=== PATIENT | male | born 1985 | race Caucasian/White ===

== ENCOUNTER → 2016-07-12 | Emergency (ER) | payer BC ==
[~2016-07-12] MED LIST: DULO60CA PO
== END | disposition left against medical advice (07) ==
LOC: ER 21:47
DX: R51 Headache (principal); Z53.21 Procedure and treatment not carried out due to patient leaving prior to being seen by health care provider

== ENCOUNTER 2016-09-07 08:41 | Emergency (ER) | payer BC ==
[~2016-09-07] VITALS: Ht 172.7 cm; Wt 98.0 kg
[2016-09-07 08:48] VITALS: BP 136/93
== END 2016-09-07 09:14 | disposition home or self-care (01) ==
LOC: ER 08:48
DX: M54.5 Low back pain (principal); G89.29 Other chronic pain; M19.90 Unspecified osteoarthritis, unspecified site; F17.210 Nicotine dependence, cigarettes, uncomplicated; Z88.0 Allergy status to penicillin; Z76.0 Encounter for issue of repeat prescription; Z79.899 Other long term (current) drug therapy

== ENCOUNTER 2016-10-10 03:39 | Emergency (ER) | payer BC ==
[~2016-10-10] VITALS: Ht 172.7 cm; Wt 97.5 kg
[2016-10-10 04:44] LABS: Urine RBC None Seen /hpf (0 - 3)
[2016-10-10 04:52] LABS: Urine Bilirubin Negative (Negative); Urine Blood Negative /uL (Negative); Urine Color Yellow (Yellow); Urine Glucose Normal (Normal); Urine Ketone Negative (Negative); Urine Nitrite Negative (Negative); Urine Urobilinogen Normal (Negative); Urine pH 6.5 (5.0-8.0)
[2016-10-10] MEDS ORDERED: SODIUM CHLORIDE 0.9% 1,000 ML IV ONE (09:12)
[2016-10-10] MEDS ORDERED: KETOROLAC TROMETH 30 MG/ML 1ML VIAL IV ONE (09:15)
[2016-10-10] MEDS ORDERED: METOCLOPRAMIDE HCL 5MG/ml INJ 2ml VIAL IV ONE (09:15)
[2016-10-10 09:43] LABS: Basophils # (auto) 0 uL; Basophils % (auto) 0.2 % (0.0-2.0); Eosinophils # (auto) 0.2 uL; Eosinophils % (auto) 1.8 % (0.0-7.0); Hematocrit 45.2 % (41.0-53.0); Hemoglobin 15.6 g/dL (13.5-17.5); Lymphocytes # (auto) 2.5 uL; Mean Corpuscular Hemoglobin 31.8 pg (28.0-32.0); Mean Corpuscular Hgb Conc. 34.5 g/dL (32.0-36.0); Mean Corpuscular Volume 92.3 fL (80.0-100.0); Mean Platelet Volume 9.2 fL (7.4-10.4); Monocytes # (auto) 0.5 uL; Monocytes % (auto) 4.3 % (0.0-12.0); Neutrophils % (auto) 71.7 % (37.0-80.0); Platelet Count (auto) 210 10^3/uL (140-450); Red Cell Distribution Width 13.4 % (11.6-16.0); White Blood Cell 11.2 10^3/uL (4.4-10.8)
[2016-10-10 09:49] LABS: Urine RBC None Seen /hpf (0 - 3)
[2016-10-10 09:55] VITALS: BP 143/96
[2016-10-10 09:56] LABS: Albumin 4.1 g/dL (3.4-5.0); Calcium 9.3 mg/dL (8.5-10.1); Magnesium 2.2 mg/dL (1.6-2.6)
[2016-10-10 10:00] LABS: Bilirubin, Total 0.4 mg/dL (0.2-1.0); Potassium 3.7 mmol/L (3.5-5.1); Total Protein 7.5 g/dL (6.4-8.2)
[2016-10-10 10:12] LABS: Urine Bilirubin Negative (Negative); Urine Blood Negative /uL (Negative); Urine Color Yellow (Yellow); Urine Glucose Normal (Normal); Urine Ketone Negative (Negative); Urine Nitrite Negative (Negative); Urine Squamous Epithelial Cell FEW /hpf (<5); Urine Urobilinogen Normal (Negative); Urine pH 6.5 (5.0-8.0)
== END 2016-10-10 10:32 | disposition home or self-care (01) ==
LOC: ER 03:43
DX: G89.4 Chronic pain syndrome (principal); M54.2 Cervicalgia; G89.29 Other chronic pain; M19.90 Unspecified osteoarthritis, unspecified site; F17.210 Nicotine dependence, cigarettes, uncomplicated
CPT/HCPCS: 36415; 80053; 81001; 83735; 85025; 96374; 96375; 99284; G0434; J1885; J2765; J7030

== ENCOUNTER 2017-02-18 01:39 | Emergency (ER) | payer BC ==
[~2017-02-18] VITALS: Ht 172.7 cm; Wt 100.2 kg
[2017-02-18 01:53] VITALS: BP 146/87
[2017-02-18] MEDS ORDERED: LORazepam 0.5 MG TAB PO ONE (04:30)
== END 2017-02-18 04:21 | disposition home or self-care (01) ==
LOC: ER 01:39
DX: F41.9 Anxiety disorder, unspecified (principal); M19.90 Unspecified osteoarthritis, unspecified site; F17.210 Nicotine dependence, cigarettes, uncomplicated

== ENCOUNTER 2017-10-03 14:49 | Emergency (ER) | payer BC, OTHER ==
[~2017-10-03] VITALS: Ht 172.7 cm; Wt 95.3 kg
[2017-10-03 15:17] VITALS: BP 145/95
== END 2017-10-03 16:31 | disposition home or self-care (01) ==
LOC: ER 14:49
DX: F41.9 Anxiety disorder, unspecified (principal); F31.9 Bipolar disorder, unspecified; F17.210 Nicotine dependence, cigarettes, uncomplicated; Z76.0 Encounter for issue of repeat prescription

== ENCOUNTER 2018-07-11 11:18 | Emergency (ER) | payer SELFPAY ==
[~2018-07-11] VITALS: Ht 172.7 cm; Wt 83.9 kg
[2018-07-11] MEDS ORDERED: SODIUM CHLORIDE 0.9% 1,000 ML IVB ONE (11:22)
[2018-07-11 11:43] VITALS: BP 142/87
[2018-07-11 11:57] LABS: Basophils # (auto) 0 uL; Basophils % (auto) 0.3 % (0.0-2.0); Eosinophils # (auto) 0 uL; Eosinophils % (auto) 0.2 % (0.0-7.0); Lymphocytes # (auto) 1.1 uL; Lymphocytes % (auto) 12.6 % (10.0-50.0); Monocytes # (auto) 0.4 uL; Red Blood Cells 5.75 10^6/uL (4.5-5.90)
[2018-07-11 11:59] LABS: Hematocrit 53.7 % (41.0-53.0); Hemoglobin 18.6 g/dL (13.5-17.5); Mean Corpuscular Hemoglobin 32.4 pg (28.0-32.0); Mean Corpuscular Hgb Conc. 34.7 g/dL (32.0-36.0); Mean Corpuscular Volume 93.4 fL (80.0-100.0); Monocytes % (auto) 4.3 % (0.0-12.0); Neutrophils # (auto) 7.4 uL; Neutrophils % (auto) 82.6 % (37.0-80.0); Nucleated Red Blood Cells % 0.1 %; Platelet Count (auto) 216 10^3/uL (140-450); Red Cell Distribution Width 13.6 % (11.8-14.3)
[2018-07-11 12:13] LABS: Albumin 4.5 g/dL (3.4-5.0); Anion Gap 7 (5-15); Blood Alcohol < 3.0 mg/dL (0-5); Blood Urea Nitrogen 10 mg/dL (7-18); Calcium 9.1 mg/dL (8.5-10.1); Carbon Dioxide 27 mmol/L (21-32); Chloride 105 mmol/L (98-107); Glucose 122 mg/dL (74-106); Magnesium 2.3 mg/dL (1.6-2.6); Sodium 139 mmol/L (136-145)
[2018-07-11 12:15] LABS: Alanine Aminotransferase 27 U/L (16-61); Alkaline Phosphatase 77 U/L (45-117); Aspartate Aminotransferase 14 U/L (15-37); BUN/Creatinine Ratio 9.5; Bilirubin, Total 0.4 mg/dL (0.2-1.0); GFR African American 105 mL/min; GFR Non-African American 86 mL/min; Total Protein 8.5 g/dL (6.4-8.2)
== END 2018-07-11 17:15 ==
LOC: EDBD 11:18 → ER 11:26
DX: F20.9 Schizophrenia, unspecified (principal); F41.9 Anxiety disorder, unspecified; M19.90 Unspecified osteoarthritis, unspecified site; F32.9 Major depressive disorder, single episode, unspecified; F17.210 Nicotine dependence, cigarettes, uncomplicated
CPT/HCPCS: 36415; 80053; 80320; 83735; 85025; 94761

== ENCOUNTER 2020-06-13 20:11 | Emergency (ER) | payer MEDICAID, OTHER | END 2020-06-14 01:00 | disposition left against medical advice (07) | LOC: ER 20:12 | DX: M79.673 Pain in unspecified foot (principal); Z53.21 Procedure and treatment not carried out due to patient leaving prior to being seen by health care provider ==

== ENCOUNTER 2020-06-14 20:55 | Emergency (ER) | payer MEDICAID ==
[~2020-06-14] VITALS: Ht 170.2 cm; Wt 73.0 kg
[2020-06-14 21:11] VITALS: BP 127/80
[2020-06-14] MEDS ORDERED: diphenhdrAMINE HCL 50 MG/1 ML VL ONE (21:31)
[2020-06-14] MEDS ORDERED: LORazepam 2MG/ML-1ML VIAL ONE (21:31)
[2020-06-14 21:55] LABS: Basophils # (auto) 0 10 ^3/uL (0-0.2); Basophils % (auto) 0.4 % (0.0-2.0); Eosinophils # (auto) 0 10 ^3/uL (0-0.8); Eosinophils % (auto) 0.5 % (0.0-7.0); Hematocrit 41.7 % (41.0-53.0); Hemoglobin 13.9 g/dL (13.5-17.5); Lymphocytes # (auto) 1.9 10 ^3/uL (0.4-5.4); Lymphocytes % (auto) 27.4 % (10.0-50.0); Mean Corpuscular Hemoglobin 31.5 pg (28.0-32.0); Mean Corpuscular Hgb Conc. 33.4 g/dL (32.0-36.0); Mean Corpuscular Volume 94.4 fL (80.0-100.0); Monocytes # (auto) 0.5 10 ^3/uL (0-1.3); Monocytes % (auto) 7.7 % (0.0-12.0); Neutrophils # (auto) 4.4 10 ^3/uL (1.6-8.6); Platelet Count (auto) 127 10^3/uL (140-450); Red Blood Cells 4.42 10^6/uL (4.5-5.90); Red Cell Distribution Width 13.3 % (11.8-14.3); White Blood Cell 6.8 10^3/uL (4.4-10.8)
[2020-06-14 22:14] LABS: Albumin 3.9 g/dL (3.4-5.0); Calcium 9.1 mg/dL (8.5-10.1)
[2020-06-14 22:17] LABS: Bilirubin, Total 0.4 mg/dL (0.2-1.0); Total Protein 7.4 g/dL (6.4-8.2)
[2020-06-14 22:23] LABS: Acetaminophen < 2.0 ug/mL (10-30)
[2020-06-14] MEDS ORDERED: diphenhdrAMINE HCL 50 MG/1 ML VL IM ONE (22:30)
[2020-06-14] MEDS ORDERED: LORazepam 2MG/ML-1ML VIAL IM ONE (22:30)
== END 2020-06-15 00:20 | disposition left against medical advice (07) ==
LOC: ER 20:55
DX: F23 Brief psychotic disorder (principal); F41.9 Anxiety disorder, unspecified
CPT/HCPCS: 36415; 80053; 80329; 85025; 96372; 99284; J1200; J2060

== ENCOUNTER 2020-06-17 20:05 | Emergency (ER) | payer MEDICAID ==
[~2020-06-17] VITALS: Ht 172.7 cm; Wt 77.1 kg
[2020-06-17 21:16] LABS: Basophils # (auto) 0 10 ^3/uL (0-0.2); Basophils % (auto) 0.3 % (0.0-2.0); Eosinophils # (auto) 0 10 ^3/uL (0-0.8); Eosinophils % (auto) 0.3 % (0.0-7.0); Hemoglobin 14.2 g/dL (13.5-17.5); Lymphocytes # (auto) 1.6 10 ^3/uL (0.4-5.4); Lymphocytes % (auto) 21.3 % (10.0-50.0); Mean Corpuscular Hemoglobin 30.7 pg (28.0-32.0); Mean Corpuscular Hgb Conc. 33.1 g/dL (32.0-36.0); Mean Corpuscular Volume 92.8 fL (80.0-100.0); Monocytes # (auto) 0.3 10 ^3/uL (0-1.3); Monocytes % (auto) 4.2 % (0.0-12.0); Neutrophils # (auto) 5.6 10 ^3/uL (1.6-8.6); Neutrophils % (auto) 73.9 % (37.0-80.0); Platelet Count (auto) 104 10^3/uL (140-450); Red Blood Cells 4.63 10^6/uL (4.5-5.90); Red Cell Distribution Width 13.3 % (11.8-14.3); White Blood Cell 7.6 10^3/uL (4.4-10.8)
[2020-06-17 21:26] LABS: Blood Alcohol < 3.0 mg/dL (0-5); Magnesium 2.2 mg/dL (1.6-2.6)
[2020-06-17 21:30] LABS: Albumin 4.2 g/dL (3.4-5.0); BUN/Creatinine Ratio 25.6; Potassium 4.3 mmol/L (3.5-5.1)
[2020-06-17 21:32] LABS: Bilirubin, Total 0.3 mg/dL (0.2-1.0); Total Protein 7.8 g/dL (6.4-8.2)
[2020-06-17 21:34] LABS: Salicylate 4.3 mg/dL (2.8-20.0)
[2020-06-17 21:44] LABS: Acetaminophen < 2.0 ug/mL (10-30)
[2020-06-17] MEDS ORDERED: OLANZapine 5 MG TAB PO ONE (21:45)
[2020-06-17 21:59] LABS: Urine WBC None Seen /hpf (0 - 3)
[2020-06-17 22:14] LABS: Urine Amorphous Crystal FEW /hpf (None Seen); Urine Bacteria NONE SEEN /hpf (None Seen); Urine Blood Negative /uL (Negative); Urine Specific Gravity 1.029 (1.001-1.035)
[2020-06-17 22:24] LABS: Alcohol, Urine < 3.0 mg/dL (0-10); Amphetamine Screen, Urine NEGATIVE (NEGATIVE); Barbiturate Scree,Urine NEGATIVE (NEGATIVE); Benzodiazephine Screen, Urine NEGATIVE (NEGATIVE); Cannabinoid Screen, Urine POSITIVE (NEGATIVE); Cocaine Screen, Urine NEGATIVE (NEGATIVE); Opiate Scree,Urine NEGATIVE (NEGATIVE); Phencyclidine Screen, Urine NEGATIVE (NEGATIVE)
[2020-06-17] MEDS ORDERED: ACETAMINOPHEN 325 MG TAB PO ONE (22:30)
[2020-06-18 08:10] VITALS: BP 127/78
== END 2020-06-18 03:49 | disposition home or self-care (01) ==
LOC: ER 20:05
DX: F20.9 Schizophrenia, unspecified (principal); F41.9 Anxiety disorder, unspecified; F31.9 Bipolar disorder, unspecified; Z20.828 Contact with and (suspected) exposure to other viral communicable diseases
CPT/HCPCS: 36415; 80053; 80307; 80320; 80329; 81001; 83735; 85025; 87426; 99285; J7030

== ENCOUNTER 2020-07-07 23:35 | Emergency (ER) | payer MEDICAID ==
[~2020-07-07] VITALS: Ht 170.2 cm; Wt 68.0 kg
[2020-07-08 01:21] LABS: Basophils # (auto) 0 10 ^3/uL (0-0.2); Basophils % (auto) 0.3 % (0.0-2.0); Eosinophils # (auto) 0 10 ^3/uL (0-0.8); Eosinophils % (auto) 0.2 % (0.0-7.0); Hematocrit 39.6 % (41.0-53.0); Hemoglobin 13.9 g/dL (13.5-17.5); Lymphocytes # (auto) 2.8 10 ^3/uL (0.4-5.4); Lymphocytes % (auto) 26.7 % (10.0-50.0); Mean Corpuscular Hemoglobin 31.9 pg (28.0-32.0); Mean Corpuscular Volume 91.3 fL (80.0-100.0); Neutrophils # (auto) 6.5 10 ^3/uL (1.6-8.6); Neutrophils % (auto) 62.8 % (37.0-80.0); Platelet Count (auto) 247 10^3/uL (140-450); Red Blood Cells 4.34 10^6/uL (4.5-5.90); White Blood Cell 10.3 10^3/uL (4.4-10.8)
[2020-07-08 01:44] LABS: Albumin 4.1 g/dL (3.4-5.0); Anion Gap 6 (5-15); Blood Alcohol < 3.0 mg/dL (0-5); Blood Urea Nitrogen 14 mg/dL (7-18); Calcium 9.3 mg/dL (8.5-10.1); Carbon Dioxide 30 mmol/L (21-32); Chloride 104 mmol/L (98-107); Glucose 129 mg/dL (74-106); Magnesium 1.9 mg/dL (1.6-2.6); Potassium 3.6 mmol/L (3.5-5.1); Sodium 140 mmol/L (136-145)
[2020-07-08 01:46] LABS: Alanine Aminotransferase 61 U/L (16-61); Aspartate Aminotransferase 51 U/L (15-37); BUN/Creatinine Ratio 14.6; GFR African American 115 mL/min; GFR Non-African American 95 mL/min
[2020-07-08 01:49] LABS: Alkaline Phosphatase 72 U/L (45-117); Bilirubin, Total 0.3 mg/dL (0.2-1.0); Salicylate < 1.7 mg/dL (2.8-20.0); Total Protein 7.8 g/dL (6.4-8.2)
[2020-07-08 01:49] LABS: Alcohol, Urine < 3.0 mg/dL (0-10); Amphetamine Screen, Urine NEGATIVE (NEGATIVE); Benzodiazephine Screen, Urine NEGATIVE (NEGATIVE); Cannabinoid Screen, Urine NEGATIVE (NEGATIVE); Cocaine Screen, Urine NEGATIVE (NEGATIVE); Opiate Scree,Urine NEGATIVE (NEGATIVE); Phencyclidine Screen, Urine NEGATIVE (NEGATIVE)
[2020-07-08 02:06] LABS: Barbiturate Scree,Urine NEGATIVE (NEGATIVE)
[2020-07-08 02:56] LABS: Urine Bacteria NONE SEEN /hpf (None Seen); Urine Blood Negative /uL (Negative); Urine Specific Gravity 1.024 (1.001-1.035); Urine WBC 1 /hpf (0 - 3)
[2020-07-08 03:17] LABS: Acetaminophen < 2.0 ug/mL (10-30)
[2020-07-09] MEDS: LATUDA 80 MG TAB PO SCH (10:00)
[2020-07-09] MEDS: DULoxetine HCL 30 MG CAP PO SCH (10:00)
[2020-07-09] MEDS: ALPRAZolam 0.5 MG TAB PO PRN ×2 (11:08→20:21)
[2020-07-10] MEDS: LATUDA 80 MG TAB PO SCH (10:00)
[2020-07-10] MEDS: DULoxetine HCL 30 MG CAP PO SCH (10:35)
[2020-07-10] MEDS: ZINC SULFATE 220mg CAP or TAB PO SCH (16:00)
[2020-07-10] MEDS: ASCORBIC ACID 500 MG TAB PO SCH (16:00)
[2020-07-10] MEDS: CHOLECALCIFEROL (VITD3) 2,000 UNIT CAP PO SCH (16:00)
[2020-07-10] MEDS: ALPRAZolam 0.5 MG TAB PO PRN (20:27)
[2020-07-11] MEDS: LATUDA 80 MG TAB PO SCH (09:19)
[2020-07-11] MEDS: DULoxetine HCL 30 MG CAP PO SCH (13:00)
[2020-07-11] MEDS: ASCORBIC ACID 500 MG TAB PO SCH (13:00)
[2020-07-11] MEDS: CHOLECALCIFEROL (VITD3) 2,000 UNIT CAP PO SCH (13:00)
[2020-07-11] MEDS: ZINC SULFATE 220mg CAP or TAB PO SCH (13:00)
[2020-07-11] MEDS: ALPRAZolam 0.5 MG TAB PO PRN ×2 (13:23→21:30)
[2020-07-12 02:16] VITALS: BP 120/79
== END 2020-07-12 07:39 | disposition home or self-care (01) ==
LOC: ER 23:35
DX: R45.851 Suicidal ideations (principal); F32.9 Major depressive disorder, single episode, unspecified; F20.9 Schizophrenia, unspecified; F41.9 Anxiety disorder, unspecified; Z20.828 Contact with and (suspected) exposure to other viral communicable diseases
CPT/HCPCS: 36415; 80053; 80307; 80320; 80329; 81001; 83735; 85025; 87426; 99285; C9803; U0003

== ENCOUNTER 2020-07-18 09:39 | Emergency (ER) | payer MEDICAID ==
[~2020-07-18] VITALS: Ht 172.7 cm; Wt 70.3 kg
[2020-07-18 09:59] VITALS: BP 122/81
== END 2020-07-18 11:38 | disposition home or self-care (01) ==
LOC: ER 09:39
DX: S90.424A Blister (nonthermal), right lesser toe(s), initial encounter (principal); X58.XXXA Exposure to other specified factors, initial encounter; Y93.89 Activity, other specified; Y92.89 Other specified places as the place of occurrence of the external cause; Y99.8 Other external cause status

== ENCOUNTER 2020-07-24 19:38 | Emergency (ER) | payer MEDICAID ==
[~2020-07-24] VITALS: Ht 172.7 cm; Wt 68.0 kg
[2020-07-24 20:50] VITALS: BP 136/72
== END 2020-07-24 23:29 | disposition home or self-care (01) ==
LOC: ER 19:38
DX: J06.9 Acute upper respiratory infection, unspecified (principal); R53.83 Other fatigue; R06.02 Shortness of breath; M79.10 Myalgia, unspecified site
CPT/HCPCS: 71045

== ENCOUNTER 2020-07-25 09:15 | Emergency (ER) | payer MEDICAID ==
[~2020-07-25] VITALS: Ht 172.7 cm; Wt 70.3 kg
[2020-07-25 09:17] VITALS: BP 127/79
== END 2020-07-25 10:19 | disposition home or self-care (01) ==
LOC: ER 09:15
DX: H66.92 Otitis media, unspecified, left ear (principal); F12.10 Cannabis abuse, uncomplicated

== ENCOUNTER 2020-07-27 01:39 | Emergency (ER) | payer MEDICAID ==
[~2020-07-27] VITALS: Ht 172.7 cm; Wt 74.8 kg
[2020-07-27 06:00] LABS: Basophils # (auto) 0 10 ^3/uL (0-0.2); Basophils % (auto) 0.4 % (0.0-2.0); Eosinophils # (auto) 0.3 10 ^3/uL (0-0.8); Eosinophils % (auto) 3.5 % (0.0-7.0); Hematocrit 37.9 % (41.0-53.0); Lymphocytes # (auto) 2.6 10 ^3/uL (0.4-5.4); Mean Corpuscular Hemoglobin 31.5 pg (28.0-32.0); Mean Corpuscular Hgb Conc. 34.4 g/dL (32.0-36.0); Mean Corpuscular Volume 91.8 fL (80.0-100.0); Monocytes # (auto) 0.5 10 ^3/uL (0-1.3); Monocytes % (auto) 6.6 % (0.0-12.0); Neutrophils # (auto) 3.8 10 ^3/uL (1.6-8.6); Neutrophils % (auto) 53.5 % (37.0-80.0); Nucleated Red Blood Cells % 0.1 %; Platelet Count (auto) 245 10^3/uL (140-450); Red Blood Cells 4.13 10^6/uL (4.5-5.90); Red Cell Distribution Width 13.3 % (11.8-14.3); White Blood Cell 7.2 10^3/uL (4.4-10.8)
[2020-07-27 06:17] LABS: Albumin 3.8 g/dL (3.4-5.0); BUN/Creatinine Ratio 26.7; Calcium 8.6 mg/dL (8.5-10.1); Magnesium 2.1 mg/dL (1.6-2.6); Potassium 3.9 mmol/L (3.5-5.1)
[2020-07-27 06:20] LABS: Acetaminophen < 2.0 ug/mL (10-30); Bilirubin, Total 0.2 mg/dL (0.2-1.0)
[2020-07-27] MEDS ORDERED: traMADol HCL 50 MG TAB PO ONE (06:45)
[2020-07-27 08:30] VITALS: BP 136/88
== END 2020-07-27 09:15 | disposition home or self-care (01) ==
LOC: ER 01:42
DX: F41.9 Anxiety disorder, unspecified (principal); Z88.0 Allergy status to penicillin
CPT/HCPCS: 36415; 80053; 80320; 80329; 83735; 85025

== ENCOUNTER 2020-07-30 19:15 | Emergency (ER) | payer MEDICAID ==
[~2020-07-30] VITALS: Ht 172.7 cm; Wt 63.5 kg
[2020-07-30] MEDS ORDERED: OLANZapine 5 MG TAB PO ONE (19:45)
[2020-07-30 21:12] LABS: Basophils # (auto) 0 10 ^3/uL (0-0.2); Basophils % (auto) 0.6 % (0.0-2.0); Eosinophils # (auto) 0.2 10 ^3/uL (0-0.8); Eosinophils % (auto) 2.6 % (0.0-7.0); Hematocrit 40.5 % (41.0-53.0); Hemoglobin 14.3 g/dL (13.5-17.5); Mean Corpuscular Hemoglobin 32.6 pg (28.0-32.0); Mean Corpuscular Hgb Conc. 35.4 g/dL (32.0-36.0); Mean Corpuscular Volume 91.9 fL (80.0-100.0); Monocytes # (auto) 0.3 10 ^3/uL (0-1.3); Monocytes % (auto) 4.8 % (0.0-12.0); Neutrophils # (auto) 4.1 10 ^3/uL (1.6-8.6); Nucleated Red Blood Cells % 0.1 %; Platelet Count (auto) 215 10^3/uL (140-450); Red Cell Distribution Width 13.4 % (11.8-14.3); White Blood Cell 6.6 10^3/uL (4.4-10.8)
[2020-07-30 21:28] LABS: BUN/Creatinine Ratio 21.6; Calcium 8.8 mg/dL (8.5-10.1); Potassium 3.5 mmol/L (3.5-5.1); Salicylate 3.6 mg/dL (2.8-20.0)
[2020-07-30 21:31] LABS: Bilirubin, Total 0.3 mg/dL (0.2-1.0); Magnesium 2.4 mg/dL (1.6-2.6); Total Protein 7.7 g/dL (6.4-8.2)
[2020-07-30 21:33] LABS: Acetaminophen < 2.0 ug/mL (10-30)
[2020-07-30 22:07] LABS: Urine Bacteria NONE SEEN /hpf (None Seen); Urine Blood Negative /uL (Negative); Urine Specific Gravity 1.028 (1.001-1.035); Urine WBC 2 /hpf (0 - 3)
[2020-07-30 22:13] LABS: Amphetamine Screen, Urine NEGATIVE (NEGATIVE); Barbiturate Scree,Urine NEGATIVE (NEGATIVE); Cannabinoid Screen, Urine NEGATIVE (NEGATIVE); Cocaine Screen, Urine NEGATIVE (NEGATIVE); Opiate Scree,Urine NEGATIVE (NEGATIVE); Phencyclidine Screen, Urine NEGATIVE (NEGATIVE)
[2020-07-30 22:16] LABS: Benzodiazephine Screen, Urine NEGATIVE (NEGATIVE)
[2020-08-02] MEDS ORDERED: LORazepam 0.5 MG TAB PO ONE (15:00)
[2020-08-02] MEDS: OLANZapine 5 MG TAB PO SCH (22:37)
[2020-08-03 10:58] VITALS: BP 109/67
[2020-08-03] MEDS: OLANZapine 5 MG TAB PO SCH (11:02)
== END 2020-08-03 11:11 | disposition short-term general hospital (02) ==
LOC: ER 19:17
DX: R44.0 Auditory hallucinations (principal); F32.9 Major depressive disorder, single episode, unspecified; F41.9 Anxiety disorder, unspecified; F12.10 Cannabis abuse, uncomplicated; F15.10 Other stimulant abuse, uncomplicated; Z59.0 Homelessness; Z20.822 Contact with and (suspected) exposure to COVID-19
CPT/HCPCS: 36415; 80053; 80307; 80320; 80329; 81001; 83735; 85025; 87426; 99285; C9803; U0003

== ENCOUNTER 2020-12-17 14:32 | Emergency (ER) | payer MEDICAID ==
[~2020-12-17] VITALS: Ht 175.3 cm; Wt 72.6 kg
[2020-12-17 16:35] VITALS: BP 91/66
== END 2020-12-17 16:37 | disposition home or self-care (01) ==
LOC: ER 14:32
DX: S90.425A Blister (nonthermal), left lesser toe(s), initial encounter (principal); F41.9 Anxiety disorder, unspecified; F32.9 Major depressive disorder, single episode, unspecified; F20.9 Schizophrenia, unspecified; Z88.0 Allergy status to penicillin; Z88.8 Allergy status to other drugs, medicaments and biological substances; Z79.899 Other long term (current) drug therapy; Z59.0 Homelessness; X58.XXXA Exposure to other specified factors, initial encounter; Y93.89 Activity, other specified; Y92.89 Other specified places as the place of occurrence of the external cause; Y99.8 Other external cause status

== ENCOUNTER 2021-04-22 07:32 | Emergency (ER) | payer MEDICAID ==
[~2021-04-22] VITALS: Ht 170.2 cm; Wt 81.6 kg
[2021-04-22 07:51] VITALS: BP 125/84
== END 2021-04-22 08:43 | disposition home or self-care (01) ==
LOC: ER 07:32
DX: F20.9 Schizophrenia, unspecified (principal); F32.9 Major depressive disorder, single episode, unspecified; F41.9 Anxiety disorder, unspecified; Z76.0 Encounter for issue of repeat prescription; Z59.00 Homelessness unspecified; Z79.899 Other long term (current) drug therapy; Z88.0 Allergy status to penicillin; Z88.8 Allergy status to other drugs, medicaments and biological substances

== ENCOUNTER → 2022-08-15 | Emergency (ER) | payer MEDICAID ==
[~2022-08-15] VITALS: Ht 172.7 cm; Wt 81.6 kg
[~2022-08-15] MED LIST changes: +LORazepam 2MG/ML-1ML VIAL IV ONE
[2022-08-15 02:57] VITALS: BP 150/80
== END | disposition left against medical advice (07) ==
LOC: EDUNIT# 02:48 → EDBD 02:49 → ER 02:49
DX: R40.4 Transient alteration of awareness (principal); F41.9 Anxiety disorder, unspecified; F15.90 Other stimulant use, unspecified, uncomplicated; Z53.21 Procedure and treatment not carried out due to patient leaving prior to being seen by health care provider

== ENCOUNTER 2022-08-31 09:54 | Emergency (ER) | payer MEDICAID ==
[~2022-08-31] VITALS: Ht 172.7 cm; Wt 90.1 kg
[~2022-08-31 09:54] MED LIST changes: -LORazepam 2MG/ML-1ML VIAL IV ONE
[2022-08-31] MEDS ORDERED: IBUP800T27 PO (10:57)
[2022-08-31 11:00] VITALS: BP 107/66
[2022-08-31] MEDS ORDERED: KETOROLAC TROMETH 60MG/2ML VIAL IM ONE (11:00)
== END 2022-08-31 11:10 | disposition home or self-care (01) ==
LOC: ER 09:54
DX: M79.672 Pain in left foot (principal); M79.671 Pain in right foot; F12.10 Cannabis abuse, uncomplicated; F15.10 Other stimulant abuse, uncomplicated; Z59.00 Homelessness unspecified; Z88.0 Allergy status to penicillin; Z88.8 Allergy status to other drugs, medicaments and biological substances
CPT/HCPCS: 96372; 99283; J1885

== ENCOUNTER 2022-12-14 07:17 | Emergency (ER) | payer MEDICAID ==
[~2022-12-14] VITALS: Ht 175.3 cm; Wt 76.0 kg
[~2022-12-14 07:17] MED LIST changes: -DULO60CA PO; +DULO60CA41 PO; +IBUP-1456 PO
[2022-12-14 08:01] VITALS: BP 109/62
[2022-12-14] MEDS ORDERED: OLAN1TAB19 PO ×2 (08:15→08:36)
[2022-12-14] MEDS ORDERED: OLANZapine 5 MG TAB PO ONE (08:15)
== END 2022-12-14 08:31 | disposition home or self-care (01) ==
LOC: ER 07:17
DX: F31.9 Bipolar disorder, unspecified (principal); F41.9 Anxiety disorder, unspecified; F12.10 Cannabis abuse, uncomplicated; F15.10 Other stimulant abuse, uncomplicated; Z59.00 Homelessness unspecified; Z76.0 Encounter for issue of repeat prescription; Z88.0 Allergy status to penicillin

== ENCOUNTER 2022-12-18 01:13 | Emergency (ER) | payer MEDICAID ==
[~2022-12-18] VITALS: Ht 175.3 cm; Wt 91.0 kg
[2022-12-18 01:13] VITALS: BP 114/50
[~2022-12-18 01:13] MED LIST changes: +OLAN1TAB19 PO
== END 2022-12-18 06:19 | disposition left against medical advice (07) ==
LOC: ER 01:13
DX: Z76.0 Encounter for issue of repeat prescription (principal); Z53.21 Procedure and treatment not carried out due to patient leaving prior to being seen by health care provider

== ENCOUNTER 2024-03-11 18:13 | Emergency (ER) | payer MEDICAID ==
[~2024-03-11] VITALS: Ht 170.2 cm; Wt 76.9 kg
[2024-03-11 18:40] LABS: Urine Bacteria None Seen /hpf (None Seen)
[2024-03-11 19:03] LABS: Urine Blood Negative /uL (Negative); Urine Clarity Clear (Clear); Urine Color Yellow (Yellow); Urine Mucus FEW (None Seen); Urine Protein, UAD 1+ (Negative); Urine Specific Gravity 1.042 (1.001-1.035); Urine Urobilinogen 3 mg/dL (Negative); Urine WBC 2 /hpf (0 - 3)
[2024-03-11 19:11] LABS: Amphetamine Screen, Urine Neg (NEGATIVE); Barbiturate Scree,Urine Neg (NEGATIVE); Benzodiazephine Screen, Urine Neg (NEGATIVE); Cannabinoid Screen, Urine Neg (NEGATIVE); Cocaine Screen, Urine Neg (NEGATIVE); Opiate Scree,Urine Neg (NEGATIVE); Phencyclidine Screen, Urine Neg (NEGATIVE)
[2024-03-12] MEDS: OLANZapine 5 MG TAB PO ONE (06:05)
[2024-03-12 06:16] VITALS: PULSE 50; RESP 16; O2SAT 96
[2024-03-12 07:35] VITALS: PULSE 57; RESP 17; O2SAT 98
[2024-03-12 20:00] VITALS: PULSE 88; RESP 18; O2SAT 98
[2024-03-12 21:08] VITALS: BP 136/80; PULSE 82; RESP 18; TEMP 97.7; O2SAT 98
[2024-03-12] MEDS ORDERED: OLANZapine 5 MG TAB PO SCH (22:00)
== END 2024-03-12 21:26 | disposition still patient (30) ==
LOC: ER 18:13
DX: F20.9 Schizophrenia, unspecified (principal); R45.851 Suicidal ideations; F41.9 Anxiety disorder, unspecified; F32.9 Major depressive disorder, single episode, unspecified; F17.210 Nicotine dependence, cigarettes, uncomplicated; F15.90 Other stimulant use, unspecified, uncomplicated; Z59.00 Homelessness unspecified; Z88.0 Allergy status to penicillin; Z88.8 Allergy status to other drugs, medicaments and biological substances; Z79.899 Other long term (current) drug therapy
CPT/HCPCS: 80307; 81001

== ENCOUNTER 2024-08-22 16:08 | Emergency (ER) | payer MEDICAID ==
[~2024-08-22] VITALS: Ht 180.3 cm; Wt 88.6 kg
--- NOTE | 2024-08-22 16:56 | ED.PDOC ---
Psychiatric HPI Comments pt walked in rambling incoherently Chief Complaint: Mental Health Time Seen by MD: 16:28 Primary Care Provider: lynn Shay Notes: Nurses Notes, Anesthesiologist/Physician Notes, Medications, Allergies Information Source: Patient Mode of Arrival: Ambulatory Severity: Unable to Care for Self, Unable to Control Self Past Medical History PAST MEDICAL HISTORY: Anxiety, Depression, Schizophrenia Surgical History: Denies all surgeries Family History Family History: Reviewed,noncontributory to illness Social History Smoker: Cigarettes Alcohol: Denies ETOH Use Drugs: Marijuana, Methamphetamine Lives In: Homeless Unable to Obtain due to: Altered Mental Status Physical Exam General Appearance: No Apparent Distress, Normal, Other (pt appears homeless, smiling, whispering incoherently, walking about nonchalantly, but can be redirected to sit briefly) HEENT: Normal ENT Inspection, Pharynx Normal, TMs Normal Neck: Full Range of Motion, Non-Tender, Normal, Normal Inspection Respiratory: Chest Non-Tender, Lungs Clear, No Accessory Muscle Use, No Respiratory Distress, Normal Breath Sounds Cardiovascular: No Edema, No JVD, No Murmur, No Gallop, Normal Peripheral Pulses, Regular Rate/Rhythm Breast Exam: Deferred Gastrointestinal: No Organomegaly, Non Tender, No Pulsatile Mass, Normal Bowel Sounds, Soft Genitalia: Deferred Pelvic: Deferred Rectal: Deferred Extremities: No calf tenderness, Normal capillary refill, Normal inspection, Normal range of motion, Non-tender, No pedal edema Musculoskeletal : Apperance: Normal Neurologic: Alert, veneer manufacturer II-XII nml as Tested, No Motor Deficits, Normal Affect, Normal Mood, No Sensory Deficits Cerebellar Function: Normal Reflexes: Normal Skin: Dry, Normal Color, Warm Lymphatic: No Adenopathy Was a procedure done? Was a procedure done?: No Psych Differential Dx Psych. Differential Dx: Anxiety, Bipolar Disorder, Schizoprenia OD Differential Dx: Alcohol Abuse, Conversion Disorder, Delirium, Encephalopathy, Hallucinations, Personality Disorder, Schizophrenia, Substance Abuse X-Ray, Labs, Meds, VS Vital Signs Date Time Temp Pulse Resp B/P (MAP) Pulse Ox O2 Delivery O2 Flow Rate FiO2 08/22/24 19:25 98.6 107 20 129/93 (105) 97 98.6 08/22/24 19:25 Room Air* 0 21 08/22/24 16:19 98.1 109 16 124/83 (97) 97 Lab Test 08/22/24 20:50 08/22/24 16:52 Range/Units Urine Opiates Screen Pending Urine Fentanyl Screen Pending Urine Barbiturates Screen Pending Urine Phencyclidine Screen Pending Urine Amphetamines Screen Pending Urine Benzodiazepines Screen Pending Urine Cocaine Screen Pending Urine Cannabinoids Screen Pending White Blood Count 14.1 H 4.4-10.8 10^3/uL Red Blood Count 5.53 4.5-5.90 10^6/uL Hemoglobin 16.7 13.5-17.5 g/dL Hematocrit 49.5 41.0-53.0 % Mean Corpuscular Volume 89.6 80.0-100.0 fL Mean Corpuscular Hemoglobin 30.3 28.0-32.0 pg Mean Corpuscular Hemoglobin Concent 33.8 32.0-36.0 g/dL Red Cell Distribution Width 13.3 11.8-14.3 % Platelet Count 209 140-450 10^3/uL Mean Platelet Volume 8.8 6.9-10.8 fL Neutrophils (%) (Auto) 81.0 H 37.0-80.0 % Lymphocytes (%) (Auto) 11.8 10.0-50.0 % Monocytes (%) (Auto) 6.7 0.0-12.0 % Eosinophils (%) (Auto) 0.0 0.0-7.0 % Basophils (%) (Auto) 0.5 0.0-2.0 % Neutrophils # (Auto) 11.4 H 1.6-8.6 10 ^3/uL Lymphocytes # (Auto) 1.7 0.4-5.4 10 ^3/uL Monocytes # (Auto) 0.9 0-1.3 10 ^3/uL Eosinophils # (Auto) 0 0-0.8 10 ^3/uL Basophils # (Auto) 0.1 0-0.2 10 ^3/uL Nucleated Red Blood Cells 0.2 % Sodium Level 139 136-145 mmol/L Potassium Level 4.8 3.5-5.1 mmol/L Chloride Level 100 98-107 mmol/L Carbon Dioxide Level 28 20-31 mmol/L Anion Gap 11 5-15 Blood Urea Nitrogen 28 H 9-23 mg/dL Creatinine 1.30 0.700-1.30 mg/dL Glomerular Filtration Rate Calc 72 >90 mL/min BUN/Creatinine Ratio 21.5 H 10.0-20.0 Serum Glucose 124 H 74-106 mg/dL Calcium Level 10.2 8.7-10.4 mg/dL Plasma/Serum Blood Alcohol < 3.0 <10 mg/dL Time of 1ST Reevaluation: 20:06 Reevaluation 1ST: Improved Patient Education/Counseling: Diagnosis, Treatment, Prognosis, Need For Follow Up Family Education/Counseling: No Family Present Change of Shift?: Yes (i will endorse the care of this pt to Dr Newberry at shift change) Additional Information pt has been having bazaar behavior. this may be a primary psychiatric disorder, or under the influence of substances. pt will be assessed by telepsych. i will endorse the care of this pt to Dr Newberry at shift change Departure 1 Departure Time of Disposition: 22:00 Impression: Primary Impression: Acute psychosis Disposition: 30 STILL A PATIENT Condition: Stable Critical Care Note Critical Care Time?: Yes (55 min-critical care time only) Critical care comment: due to concerns for patient's condition deteriorating, his care requires my highest level of attention and readiness to intervene. i reviewed pt's case, assessed his condition, ordered the proper tests, consulted poison control, and reviewed his results, response to treatments, communicated with medical personnel and formulated a plan of care. the total time provided to critical care does not include any procedures Stability Stability form required: JEFFREY Alba MD Aug 22, 2024 16:56
[2024-08-22 17:11] LABS: Basophils # (auto) 0.1 10 ^3/uL (0-0.2); Basophils % (auto) 0.5 % (0.0-2.0); Eosinophils # (auto) 0 10 ^3/uL (0-0.8); Hematocrit 49.5 % (41.0-53.0); Hemoglobin 16.7 g/dL (13.5-17.5); Lymphocytes # (auto) 1.7 10 ^3/uL (0.4-5.4); Lymphocytes % (auto) 11.8 % (10.0-50.0); Mean Corpuscular Hemoglobin 30.3 pg (28.0-32.0); Mean Corpuscular Hgb Conc. 33.8 g/dL (32.0-36.0); Mean Corpuscular Volume 89.6 fL (80.0-100.0); Monocytes # (auto) 0.9 10 ^3/uL (0-1.3); Monocytes % (auto) 6.7 % (0.0-12.0); Neutrophils # (auto) 11.4 10 ^3/uL (1.6-8.6); Nucleated Red Blood Cells % 0.2 %; Platelet Count (auto) 209 10^3/uL (140-450); Red Blood Cells 5.53 10^6/uL (4.5-5.90); Red Cell Distribution Width 13.3 % (11.8-14.3); White Blood Cell 14.1 10^3/uL (4.4-10.8)
[2024-08-22 17:16] LABS: Chloride 100 mmol/L (98-107); Potassium 4.8 mmol/L (3.5-5.1); Sodium 139 mmol/L (136-145)
[2024-08-22 17:17] LABS: Anion Gap 11 (5-15); Calcium 10.2 mg/dL (8.7-10.4); Carbon Dioxide 28 mmol/L (20-31)
[2024-08-22 17:22] LABS: BUN/Creatinine Ratio 21.5 (10.0-20.0)
[2024-08-22 17:41] LABS: Blood Alcohol < 3.0 mg/dL (<10); Blood Urea Nitrogen 28 mg/dL (9-23); Glucose 124 mg/dL (74-106)
[2024-08-22 19:25] VITALS: BP 129/93; PULSE 107; RESP 20; TEMP 98.6; O2SAT 97
[2024-08-22 21:52] LABS: Amphetamine Screen, Urine Neg (NEGATIVE); Barbiturate Scree,Urine Neg (NEGATIVE); Benzodiazephine Screen, Urine Neg (NEGATIVE); Cannabinoid Screen, Urine Neg (NEGATIVE); Cocaine Screen, Urine Neg (NEGATIVE); Opiate Scree,Urine Neg (NEGATIVE); Phencyclidine Screen, Urine Neg (NEGATIVE)
--- NOTE | 2024-08-23 00:22 | DVHINCON2 ---
Date of Service if different f: Aug 23, 2024 Time of Service: 00:18 Consult Consult Note PSYCHIATRY ED NEW CONSULT HPI: 38 yo M with PPH of depression, THC dependency, and ? schizophrenia presents to ED BIB self for safety, psychiatric stabilization and possible med initiation/optimization in setting of homelessness, med noncompliance, AH, and paranoia. Psychiatry consulted for safety evaluation and recommendations in context of current presentation Per pt, reports recent increase in panic like symptoms, also increased paranoid ideations, NC/NT derogatory AH, confusion, disorganized TP and speech, poor sleep, possible decline in self care over the past several days since smoking excessive THC daily, pt thinks THC may have been laced with amphetamines although he is uncertain. Pt may also have baseline thought disorder. Reports primary struggles as ongoing homelessness and limited support system Pt currently does not have psychiatrist/therapist out in community. Currently rx'd Olanzapine 7.5 mg qhs but ran out of med several weeks ago, some hx of med noncompliance noted Long hx of THC dependency. Denies ETOH or IDU Never , no children, unemployed, homeless/SSI for past year, limited support system noted. Unknown trauma hx. Unknown FH. No acute medical issues, NKDA Does have remote hx of suicide attempts resulting in prior psych hospitalizations/5150. Currently endorses paranoia and AH. Denies SI/HI. Some hx of unprovoked aggression/assaultive behaviors and mood reactivity resulting in prior arrests. Does not have access to firearms. No acute safety concerns noted during encounter MSE: General Appearance/Behavior: Alert and awake; appears older than stated age, marginal/poor grooming and hygiene; calm and cooperative, fair eye contact, no PMA/PMR Speech: incoherent/garbled at times Thought Process: bit impoverished and tangential/disorganized Thought Content: Abnormal Thoughts and Perceptions: None Homicidality / Violent Thoughts: None Suicidality: denies Hallucinations: (+) AH Delusions: (+) paranoid delusions Obsessions /compulsions : None Judgment and Insight: marginal/limited Mood & Affect: "ok now" with mood-congruent, confused, appropriate Orientation: oriented to person, place Assessment: 38 yo M with PPH of depression, THC dependency, and ? schizophrenia presents to ED BIB self for safety, psychiatric stabilization and possible med initiation/optimization in setting of homelessness, med noncompliance, AH, and paranoia. Pt is currently expressing some AH/PI in context of recent/ongoing med noncompliance and recent heavy/excessive THC use potentially laced with amphetamines. Pt may have some baseline thought disorder No outpt MH services at present. hx of prior psych hospitalizations for similar presentation Pt will benefit from inpatient psych admission for safety, psychiatric st abilization and possible medication initiation/optimization. Pt willing to transfer to inpt psych hospitalization voluntarily Primary Diagnosis: Psychotic disorder nos. R/o Schizophrenia. R/o SIPD. THC use disorder, moderate/severe Recommend VOL transfer to inpt psych facility for higher level of care per pts request Recommend restarting of outpt med regimen - olanzapine 7.5 mg qhs - first dose now Risks/benefits/alternative treatments discussed, informed consent provided by pt If patient later refuses voluntary hospitalization/ requests to be discharged from ED prior to transfer, pt can be safely discharged from ED WITHOUT psych reassessment for 5150 hold. Rather may benefit from consultation for housing and MH resources Pt verbalized understanding and is receptive to above tx plan This case was discussed with ED nurse/provider and all parties in agreement with above tx plan Gabino Drew MD Plan discussed with: Patient GABINO DREW MD Aug 23, 2024 00:22
[2024-08-23] MEDS: OLANZapine 5 MG TAB PO ONE (00:56)
== END 2024-08-23 06:29 | disposition home or self-care (01) ==
LOC: ER 16:08
DX: F20.9 Schizophrenia, unspecified (principal); F32.9 Major depressive disorder, single episode, unspecified; R41.82 Altered mental status, unspecified; F17.210 Nicotine dependence, cigarettes, uncomplicated; F12.20 Cannabis dependence, uncomplicated; Z59.00 Homelessness unspecified; Z91.51 Personal history of suicidal behavior; Z79.899 Other long term (current) drug therapy
CPT/HCPCS: 36415; 80048; 80307; 80320; 85025